=== PATIENT | female | born 1980 | race Caucasian/White ===

== ENCOUNTER 2022-04-23 00:15 | Emergency (ER) | payer SELFPAY ==
[2022-04-23] MEDS ORDERED: ANTACID SUSP 30 ML UDC (MYLANTA) PO ONE (00:30)
[2022-04-23] MEDS ORDERED: LIDOCAINE 2% VISCOUS 15 ML UDC PO ONE (00:30)
[2022-04-23] MEDS ORDERED: FAMOTIDINE 20 MG (PEPCID) TABLET PO STA (00:30)
[2022-04-23] MEDS ORDERED: ASPIRIN 81 MG CHEW (CHILDREN'S ASA) PO ONE (00:30)
--- NOTE | 2022-04-23 00:30 | ED Chest Pain ---
General Stated Complaint: CHEST PAIN/SOB Source: patient Exam Limitations: no limitations History of Present Illness Date Seen by Provider: Apr 23, 2022 Time Seen by Provider: 00:18 Initial Comments 41-year-old female with past medical history of alpha-1 antitrypsin deficiency, emphysema, paroxysmal SVT, CKD, type 1 diabetes coming in due to chest pain. St rajat now about an hour ago, only lasted a couple minutes, was aching, went to her left arm. Has had pain like this before. 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 Denies any prior history of DVT or PE. Also denies any hemoptysis, cough, current shortness of breath, leg swelling or pain, recent surgery, or any other concerns. Is currently menstruating. Allergies and Home Medications Allergies Coded Allergies: Sulfa (Sulfonamide Antibiotics) (Verified Allergy, Unknown, 04/23/22) Patient Home Medication List Home Medication List Reviewed: Yes Review of Systems Review of Systems Constitutional: No fever EENTM: No Blurred Vision Respiratory: Denies Cough; Shortness of Air Cardiovascular: Chest Pain Gastrointestinal: No Symptoms Reported Genitourinary: No Symptoms Reported Musculoskeletal: no symptoms reported Skin: no symptoms reported Psychiatric/Neurological: No Symptoms Reported Endocrine: No Symptoms Reported Hematologic/Lymphatic: No Symptoms Reported All Other Systems Reviewed Negative Unless Noted: Yes Past Nvyrywo-Dbqkap-Ikjqmy Hx Patient Social History Substance use?: No Past Medical History Surgeries: Yes (right sided tubal ligation) Physical Exam Vital Signs Vital Signs - First Documented 04/23/22 00:18 Temp 36.7 Pulse 107 Resp 20 B/P (MAP) 176/95 (122) Pulse Ox 95 O2 Delivery Room Air Capillary Refill : Height, Weight, BMI Height: '" Weight: lbs. oz. kg; BMI Method: General Appearance: No Apparent Distress, WD/WN HEENT: PERRL/EOMI, Normal ENT Inspection, Pharynx Normal Neck: Full Range of Motion, Normal Inspection, Non Tender, Supple Respiratory: Chest Non Tender, Lungs Clear, Normal Breath Sounds, No Accessory Muscle Use, No Respiratory Distress Cardiovascular: Regular Rate, Rhythm, No Edema, Normal Peripheral Pulses Gastrointestinal: Normal Bowel Sounds, Non Tender, Soft; No Distended, No Guarding Extremity: Normal Capillary Refill, Normal Inspection, Normal Range of Motion, Non Tender, No Calf Tenderness, No Pedal Edema Neurologic/Psychiatric: Alert, No Motor/Sensory Deficits, Normal Mood/Affect Skin: Normal Color, Warm/Dry Lymphatic: No Adenopathy Progress/Results/Core Measures Results/Orders Lab Results Laboratory Tests Test 04/23/22 00:28 Range/Units White Blood Count 9.0 4.3-11.0 10^3/uL Red Blood Count 4.33 3.80-5.11 10^6/uL Hemoglobin 12.0 11.5-16.0 g/dL Hematocrit 34 L 35-52 % Mean Corpuscular Volume 79 L 80-99 fL Mean Corpuscular Hemoglobin 28 25-34 pg Mean Corpuscular Hemoglobin Concent 35 32-36 g/dL Red Cell Distribution Width 13.1 10.0-14.5 % Platelet Count 233 130-400 10^3/uL Mean Platelet Volume 11.1 9.0-12.2 fL Immature Granulocyte % (Auto) 0 % Neutrophils (%) (Auto) 61 42-75 % Lymphocytes (%) (Auto) 24 12-44 % Monocytes (%) (Auto) 9 0-12 % Eosinophils (%) (Auto) 6 0-10 % Basophils (%) (Auto) 1 0-10 % Neutrophils # (Auto) 5.5 1.8-7.8 10^3/uL Lymphocytes # (Auto) 2.2 1.0-4.0 10^3/uL Monocytes # (Auto) 0.8 0.0-1.0 10^3/uL Eosinophils # (Auto) 0.5 H 0.0-0.3 10^3/uL Basophils # (Auto) 0.1 0.0-0.1 10^3/uL Immature Granulocyte # (Auto) 0.0 0.0-0.1 10^3/uL Prothrombin Time 11.2 L 12.2-14.7 SEC INR Comment 0.8 0.8-1.4 Activated Partial Thromboplast Time 26 24-35 SEC Sodium Level 131 L 135-145 MMOL/L Potassium Level 4.5 3.6-5.0 MMOL/L Chloride Level 93 L 98-107 MMOL/L Carbon Dioxide Level 26 21-32 MMOL/L Anion Gap 12 5-14 MMOL/L Blood Urea Nitrogen 29 H 7-18 MG/DL Creatinine 1.70 H 0.60-1.30 MG/DL Estimat Glomerular Filtration Rate 39 BUN/Creatinine Ratio 17 Glucose Level 410 *H 70-105 MG/DL Calcium Level 9.0 8.5-10.1 MG/DL Corrected Calcium 9.5 8.5-10.1 MG/DL Magnesium Level 2.0 1.6-2.4 MG/DL Total Bilirubin < 0.2 0.1-1.0 MG/DL Aspartate Amino Transf (AST/SGOT) 14 5-34 U/L Alanine Aminotransferase (ALT/SGPT) 10 0-55 U/L Alkaline Phosphatase 144 H 40-136 U/L Troponin I < 0.30 <0.30 NG/ML Total Protein 6.7 6.4-8.2 GM/DL Albumin 3.4 3.2-4.5 GM/DL Lipase 35 8-78 U/L My Orders Orders - ROB TOUSSAINT MD Cbc With Automated Diff (04/23/22:) Magnesium (04/23/22:) Chest 1 View Ap/Pa Only (04/23/22) Ekg Tracing (04/23/22:) Comprehensive Metabolic Panel (04/23/22:) Protime With Inr (04/23/22:) Partial Thromboplastin Time (04/23/22:) O2 (04/23/22:) Monitor-Rhythm Ecg Trace Only (04/23/22:) Ed Iv/Invasive Line Start (04/23/22 00:29) Lipase (04/23/22:29) Troponin I Fs (04/23/22:29) Probnp Fs (04/23/22:29) Lidocaine 2% Viscous 15 Ml (Xylocaine Vi (04/23/22 00:30) Famotidine Tablet (Pepcid Tablet) (04/23/22 00:30) Antacid Suspension (Mylanta Suspension (04/23/22:30) Aspirin Chewable Tablet (Baby Aspirin Ch (04/23/22 00:30) Ns Iv 1000 Ml (Sodium Chloride 0.9%) (04/23/22 00:38) Troponin I Fs (04/23/22 01:17) Medications Given in ED Current Medications Medications Dose Ordered Sig/Jamey Route Start Time Stop Time Status Last Admin Dose Admin Al Hydrox/Mg Hydrox/Simethicone 30 ml ONCE ONCE PO 04/23/22 00:30 04/23/22 00:32 DC 04/23/22 00:42 30 ML Aspirin 324 mg ONCE ONCE PO 04/23/22 00:30 04/23/22 00:32 DC 04/23/22 00:42 324 MG Lidocaine HCl 15 ml ONCE ONCE PO 04/23/22 00:30 04/23/22 00:32 DC 04/23/22 00:42 15 ML Vital Signs/I&O 04/23/22 00:18 Temp 36.7 Pulse 107 Resp 20 B/P (MAP) 176/95 (122) Pulse Ox 95 O2 Delivery Room Air Progress Progress Note : Progress Note 41-year-old female with above history coming in due to chest pain. ABCs were intact and vitals were stable on presentation. Physical exam reassuring including no focal abnormalities. Her pain essentially was gone prior to arrival which is reassuring. Chest x-ray my interpretation with no acute abnormalities. EKG with no acute ischemic changes. An IV was placed and basic labs were obtained including cardiac biomarkers. Troponin was negative x2. She is otherwise low risk for PE per [place] criteria and I think it is unlikely that is the cause. She did have a low blood sugar earlier and drink a lot of orange juice. Repeat blood sugar here just over 400. She was given a liter of IV fluids to help calm that down, and she can correct with insulin as well at home. I believe she is stable for discharge with outpatient follow-up. She was sent home with strict return precautions. Initial ECG Impression Date: Apr 23, 2022 Initial ECG Impression Time: 00:18 Initial ECG Rate: 103 Initial ECG Rhythm: S.Tach Comment Narrow QRS, borderline left axis deviation, T wave flattening in the high lateral leads, no significant ST changes, no prior EKG to compare to Diagnostic Imaging Diagonstic Imaging: Xray Plain Films/CT/US/NM/MRI: chest Comments Normal lung pimentel including no large opacities, no pneumothorax, normal cardiac silhouette Departure Impression Primary Impression: Chest pain Qualified Codes: R07.82 - Intercostal pain Disposition: 01 HOME, SELF-CARE Condition: Stable Departure-Patient Inst. Decision time for Depature: 02:00 Referrals: NO,LOCAL PHYSICIAN (PCP/Family) Primary Care Physician Patient Instructions: Chest Pain (DC) Add. Discharge Instructions: Your labs are reassuring and it does not appear like you are having any type of heart attack. Your chest x-ray is clear as well and it does not appear like he have any type of infection. 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
[2022-04-23] MEDS ORDERED: NS IV 1000 ML 1,000 ML IV STA (00:38)
[2022-04-23 00:53] LABS: BASOPHILS # (AUTO) 0.1 10^3/uL (0.0-0.1); BASOPHILS % (AUTO) 1 % (0-10); EOSINOPHILS # (AUTO) 0.5 10^3/uL (0.0-0.3); EOSINOPHILS % (AUTO) 6 % (0-10); HEMATOCRIT 34 % (35-52); LYMPHOCYTES # (AUTO) 2.2 10^3/uL (1.0-4.0); LYMPHOCYTES % (AUTO) 24 % (12-44); MEAN CORPUSCULAR HEMOGLOBIN 28 pg (25-34); MEAN CORPUSCULAR HGB CONC 35 g/dL (32-36); MEAN CORPUSCULAR VOLUME 79 fL (80-99); MEAN PLATELET VOLUME 11.1 fL (9.0-12.2); MONOCYTES # (AUTO) 0.8 10^3/uL (0.0-1.0); MONOCYTES % (AUTO) 9 % (0-12); NEUTROPHILS # (AUTO) 5.5 10^3/uL (1.8-7.8); NEUTROPHILS % (AUTO) 61 % (42-75); PLATELET COUNT 233 10^3/uL (130-400)
[2022-04-23 01:02] LABS: INR 0.8 (0.8-1.4); PROTHROMBIN TIME PATIENT 11.2 SEC (12.2-14.7)
[2022-04-23 01:14] LABS: SODIUM 131 MMOL/L (135-145)
[2022-04-23 01:15] LABS: BUN/CREATININE RATIO 17; CARBON DIOXIDE 26 MMOL/L (21-32); CHLORIDE 93 MMOL/L (98-107); GFR ESTIMATED 39; GLUCOSE 410 MG/DL (70-105); POTASSIUM 4.5 MMOL/L (3.6-5.0)
[2022-04-23 01:16] LABS: ALANINE AMINOTRANSFERASE 10 U/L (0-55); ALBUMIN 3.4 GM/DL (3.2-4.5); ALKALINE PHOSPHATASE 144 U/L (40-136); BILIRUBIN,TOTAL < 0.2 MG/DL (0.1-1.0); LIPASE 35 U/L (8-78); TOTAL PROTEIN 6.7 GM/DL (6.4-8.2)
[2022-04-23 01:52] VITALS: BP 140/81
--- NOTE | 2022-04-23 06:48 | Diagnostic Imaging Report ---
INDICATION: Chest pain. FINDINGS: The heart size, mediastinal configuration, and pulmonary vascularity are within normal limits. There is no pleural effusion, pneumothorax, or pneumonia. The osseous structures are unremarkable. IMPRESSION: No acute cardiopulmonary abnormality. Dictated by: Dictated on workstation # [id number]
== END 2022-04-23 02:00 | disposition home or self-care (01) ==
LOC: ER FS 00:19
DX: R07.9 Chest pain, unspecified (principal); Z28.310 Unvaccinated for COVID-19
CPT/HCPCS: 36415; 71045; 80053; 83690; 83735; 83880; 84484; 85025; 85610; 85730; 93041